=== PATIENT | female | born 1970 | race Caucasian/White ===

== ENCOUNTER 2017-04-20 07:24 | Outpatient (CLI) | payer MEDICARE, MEDICAID ==
[~2017-04-20] VITALS: Ht 167.6 cm; Wt 46.7 kg
[~2017-04-20 07:24] MED LIST: /ALEN70TA; /BACL20TA; /BACL20TA OR; ACET500C; ACET65TA OR; AMBI10TA PO; AMOX875T PO; ARIC10TA OR; ARIC10TA PO; AVON1KIT3 SC; BONI150T PO; CALC600T10; CALC600T3 PO; CHLOROQUINE PO; CIPR25SS OR; DEPO150I IM; DETR1TAB4 PO; DETR2CAP OR; DETR4CAP; DETR4CAP10 PO; FOLI1TAB2 PO; FOSA70TA PO; KEFL500C OR; MACR100C42 PO; MACR50CA OR; MAPAP PO; MAXA10TA14 PO; MAXA10TA17; MAXA10TA17 OR; MULTIVIT PO; MYSO50TA OR; MYSO50TA PO; MYSO50TA5 PO; NEUR100C OR; NEUR300C; NEUR600T PO; OXYB5TAB5 OR; PERC5TAB8 OR; PERCOCET PO; REBIF; SOLU500I IV; TOLT2TA; TRAZ300T2 PO; VITA400C2 PO; VITAMIN D50000 UNT PO; VOLT1GEL24 TD
[2017-04-20] MEDS ORDERED: methylPREDNISolone 1,000 MG, VIAL MATE ADAPTER 1 EACH in D5W 250 ML IV ONE (07:30)
== END 2017-04-20 09:00 | disposition home or self-care (01) ==
LOC: M INFU 07:24
PROVIDERS: ATTEND Internal Medicine Nephrology
DX: G35 Multiple sclerosis (principal); Z88.1 Allergy status to other antibiotic agents; Z79.899 Other long term (current) drug therapy
CPT/HCPCS: 96365; J2930

== ENCOUNTER 2017-04-21 06:17 | Outpatient (CLI) | payer MEDICARE, MEDICAID ==
[~2017-04-21] VITALS: Ht 167.6 cm; Wt 46.7 kg
[~2017-04-21 06:17] MED LIST changes: +methylPREDNISolone 1,000 MG, VIAL MATE ADAPTER 1 EACH in D5W 250 ML IV ONE
== END 2017-04-21 08:40 | disposition home or self-care (01) ==
LOC: M INFU 06:17
PROVIDERS: ATTEND Hospitalist
DX: G35 Multiple sclerosis (principal); Z88.1 Allergy status to other antibiotic agents; Z79.899 Other long term (current) drug therapy; Z79.2 Long term (current) use of antibiotics
CPT/HCPCS: 96365; J2930

== ENCOUNTER 2017-04-22 06:21 | Outpatient (CLI) | payer MEDICARE, MEDICAID ==
[~2017-04-22 06:21] MED LIST changes: -methylPREDNISolone 1,000 MG, VIAL MATE ADAPTER 1 EACH in D5W 250 ML IV ONE
[2017-04-22] MEDS ORDERED: methylPREDNISolone 1,000 MG, VIAL MATE ADAPTER 1 EACH in D5W 250 ML IV ONE (06:30)
== END 2017-04-22 07:50 | disposition home or self-care (01) ==
LOC: M INFU 06:21
PROVIDERS: ATTEND Hospitalist
DX: G35 Multiple sclerosis (principal); Z87.891 Personal history of nicotine dependence; Z88.8 Allergy status to other drugs, medicaments and biological substances; Z79.899 Other long term (current) drug therapy
CPT/HCPCS: 96365; J2930

== ENCOUNTER 2017-04-23 06:25 | Outpatient (CLI) | payer MEDICARE, MEDICAID ==
[2017-04-23] MEDS ORDERED: methylPREDNISolone 1,000 MG, VIAL MATE ADAPTER 1 EACH in D5W 250 ML IV ONE (06:45)
== END 2017-04-23 08:00 | disposition home or self-care (01) ==
LOC: M INFU 06:25
PROVIDERS: ATTEND Hospitalist
DX: G35 Multiple sclerosis (principal); Z87.891 Personal history of nicotine dependence; Z88.8 Allergy status to other drugs, medicaments and biological substances; Z79.899 Other long term (current) drug therapy
CPT/HCPCS: 96365; J2930

== ENCOUNTER 2017-04-24 06:23 | Outpatient (CLI) | payer MEDICARE, MEDICAID ==
[2017-04-24] MEDS ORDERED: methylPREDNISolone 1,000 MG, VIAL MATE ADAPTER 1 EACH in D5W 250 ML IV ONE (06:30)
== END 2017-04-24 08:00 | disposition home or self-care (01) ==
LOC: M INFU 06:23
PROVIDERS: ATTEND Hospitalist
DX: G35 Multiple sclerosis (principal); Z87.891 Personal history of nicotine dependence; Z88.8 Allergy status to other drugs, medicaments and biological substances; Z79.899 Other long term (current) drug therapy
CPT/HCPCS: 96365; J2930

== ENCOUNTER → 2017-07-14 | Outpatient (REF) | payer MEDICARE, MEDICAID ==
[~2017-07-14] MED LIST changes: -ARIC10TA PO; +ARIC1TAB2 PO; +DETR4CAP PO; -DETR4CAP10 PO; -FOLI1TAB2 PO; +FOLI1TAB4 PO; -VITA400C2 PO; +VITA400C7 PO; +VOLT1GEL15 TD; -VOLT1GEL24 TD
== END ==
LOC: M LAB REF 11:36
PROVIDERS: ATTEND Obstetrics & Gynecology
DX: N95.0 Postmenopausal bleeding (principal); Z79.899 Other long term (current) drug therapy

== ENCOUNTER → 2017-07-29 | Outpatient (CLI) | payer MEDICARE, MEDICAID ==
--- NOTE | 2017-07-29 11:44 | REP ---
PELVIC ULTRASOUND: Real-time sonographic evaluation of the pelvis performed utilizing transabdominal and endovaginal technique. The bladder measures 11.4 x 7.8 x 10.6 cm. Uterus measures 4.4 x 2.1 x 3.0 cm. Endometrial thickness is 5 mm. Right ovary measures 2.4 x 1.8 x 2.3 cm. Left ovary measures 1.9 x 1.0 x 1.3 cm. There is no adnexal mass. There is no free fluid. Blood flow is seen in each ovary with duplex Doppler evaluation, with no torsion. In the base of the bladder, there appears to be a small partial septation. IMPRESSION: Slight prominence of the endometrial thickness at 5 mm. Signed by Tyler Jacobson MD 07/29/2017 05:04 P
== END ==
LOC: M SMT 09:53
PROVIDERS: ATTEND Obstetrics & Gynecology
DX: N95.0 Postmenopausal bleeding (principal); N85.00 Endometrial hyperplasia, unspecified

== ENCOUNTER → 2018-04-06 | Outpatient (CLI) | payer MEDICARE, MEDICAID ==
[~2018-04-06] MED LIST changes: -/ALEN70TA; -/BACL20TA; -/BACL20TA OR; -ACET500C; -ACET65TA OR; -AMBI10TA PO; -AMOX875T PO; -ARIC10TA OR; -ARIC1TAB2 PO; -AVON1KIT3 SC; -BONI150T PO; -CALC600T10; -CALC600T3 PO; -CHLOROQUINE PO; -CIPR25SS OR; -DEPO150I IM; -DETR1TAB4 PO; -DETR2CAP OR; -DETR4CAP; -DETR4CAP PO; -FOLI1TAB4 PO; -FOSA70TA PO; -KEFL500C OR; -MACR100C42 PO; -MACR50CA OR; -MAPAP PO; -MAXA10TA14 PO; -MAXA10TA17; -MAXA10TA17 OR; -MULTIVIT PO; -MYSO50TA OR; -MYSO50TA PO; -MYSO50TA5 PO; -NEUR100C OR; -NEUR300C; -NEUR600T PO; -OXYB5TAB5 OR; -PERC5TAB8 OR; -PERCOCET PO; +PROHANCE 279.3MG/ML 5ML VIAL (A9576) As Ordered; -REBIF; -SOLU500I IV; -TOLT2TA; -TRAZ300T2 PO; -VITA400C7 PO; -VITAMIN D50000 UNT PO; -VOLT1GEL15 TD
== END ==
LOC: M RAD 08:45
DX: G35 Multiple sclerosis (principal)
CPT/HCPCS: A9576

== ENCOUNTER → 2019-10-20 | Outpatient (CLI) | payer MEDICARE, MEDICAID ==
[~2019-10-20] MED LIST changes: +/ALEN70TA; +ACET500C; +ACET65TA OR; +AMBI10TA PO; +AMOX875T PO; +ARIC10TA OR; +ARIC1TAB2 PO; +AVON1KIT3 SC; +BACL1TAB9; +BACL1TAB9 OR; +BONI1TAB PO; +CALC600T10; +CALC600T3 PO; +CHLOROQUINE PO; +CIPR25SS OR; +DEPO150I IM; +DETR1TAB5 PO; +DETR2CAP OR; +DETR4CAP; +DETR4CAP PO; +FOLI1TAB11 PO; +FOSA70TA PO; +KEFL500C OR; +MACR100C42 PO; +MACR50CA OR; +MAPAP PO; +MAXA10TA14 PO; +MAXA10TA17; +MAXA10TA17 OR; +MULTIVIT PO; +MYSO50TA OR; +MYSO50TA PO; +MYSO50TA5 PO; +NEUR100C OR; +NEUR300C; +NEUR600T PO; +OXYB5TAB5 OR; +PERC5TAB8 OR; +PERCOCET PO; -PROHANCE 279.3MG/ML 5ML VIAL (A9576) As Ordered; +REBIF; +SOLU500I IV; +TOLT2TA; +TRAZ300T2 PO; +VITA400C7 PO; +VITAMIN D50000 UNT PO; +VOLT1GEL15 TD
[2019-10-20 14:16] LABS: HEMATOCRIT 43.1 % (36.0-47.0); HEMOGLOBIN 13.9 g/dl (12.0-15.5); MEAN CORPUSCULAR HGB CONC 32.3 g/dl (32.0-36.5); MEAN CORPUSCULAR VOLUME 92.9 fl (80.0-96.0); PLATELET COUNT, AUTOMATED 256 10^3/uL (150-450); RED BLOOD COUNT 4.64 10^6/uL (4.00-5.40); WHITE BLOOD COUNT 8.6 10^3/uL (4.0-10.0)
== END ==
LOC: M LAB 13:52
PROVIDERS: ATTEND Physician Assistant Medical
DX: R19.5 Other fecal abnormalities (principal)

== ENCOUNTER 2019-12-06 06:43 | Day surgery (SDC) | payer MEDICARE, MEDICAID ==
[~2019-12-06] VITALS: Ht 167.6 cm; Wt 57.6 kg
[~2019-12-06 06:43] MED LIST changes: +BACL1TAB9 PO; -DEPO150I IM; +DEPO150I PO; +INTE22SYR INJ; +META0.52 PO; +MULTCAP PO; +NEUR300C PO; +NS 1,000 ML IV ONE; +OXYB5TAB10 PO; +TRAZ1TAB12 PO
[2019-12-06] MEDS ORDERED: propofoL 200 MG/20 ML VIAL As Ordered ONE ×2 (09:27→09:44)
[2019-12-06] MEDS ORDERED: LIDOCAINE 2% INJ 100 MG/5 ML SDV (FOR ANES.) As Ordered ONE (09:27)
--- NOTE | 2019-12-06 10:01 | ROOR ---
Patient Name: Tania Deng Procedure Date: 12/06/2019 9:18 AM Date of : 1970 Age: 49 Room: [facility] Gender: Female Note Status: Finalized Procedure: Colonoscopy Indications: Positive Cologuard test Providers: Adebayo PEDERSON MD Referring MD: DOT MADDOX DO Requesting Provider: Medicines: Monitored Anesthesia Care Complications: No immediate complications. Procedure: Pre-Anesthesia Assessment: - The heart rate, respiratory rate, oxygen saturations, blood pressure, adequacy of pulmonary ventilation, and response to care were monitored throughout the procedure. The Colonoscope was introduced through the anus and advanced to 10 cm into the ileum. The colonoscopy was performed without difficulty. The patient tolerated the procedure well. The quality of the bowel preparation was good. Findings: Skin tags were found on perianal exam. Four sessile and semi-pedunculated polyps were found in the sigmoid colon. The polyps were 5 to 10 mm in size. These polyps were removed with a cold snare. Resection and retrieval were complete. To prevent bleeding after the polypectomy, one hemostatic clip was successfully placed. There was no bleeding at the end of the procedure. A single (solitary) ten mm ulcer was found in the distal rectum. Biopsies were taken with a cold forceps for histology. The colon (entire examined portion) was moderately redundant. Advancing the scope required straightening and shortening the scope to obtain bowel loop reduction. The exam was otherwise normal throughout the examined colon. The terminal ileum appeared normal. Impression: - Perianal skin tags found on perianal exam. - Four 5 to 10 mm polyps in the sigmoid colon, removed with a cold snare. Resected and retrieved. Clip was placed. - A single (solitary) ulcer in the distal rectum. Biopsied. - Redundant colon. - The examined portion of the ileum was normal. Recommendation: - Rectal ulcer may be related to prolapse or fecal impaction.--recommend a good laxative regimen - Start Miralax 1 capful (17 grams) in 8 ounces of water daily. --May increase to twice a day dosing. - Repeat colonoscopy in 3 years for surveillance. Adebayo Pederson MD Adebayo PEDERSON MD 12/06/2019 10:00:29 AM Electronically signed by Adebayo PEDERSON MD Number of Addenda: 0 Note Initiated On: 12/06/2019 9:18 AM Estimated Blood Loss: Estimated blood loss: none.
[2019-12-06 10:20] VITALS: BP 161/73
== END 2019-12-06 10:36 | disposition home or self-care (01) ==
LOC: M OPP 06:43
PROVIDERS: ATTEND Internal Medicine Gastroenterology
DX: D12.5 Benign neoplasm of sigmoid colon (principal); K62.6 Ulcer of anus and rectum; K64.4 Residual hemorrhoidal skin tags; Q43.8 Other specified congenital malformations of intestine; R19.5 Other fecal abnormalities; G35 Multiple sclerosis; Z79.899 Other long term (current) drug therapy; Z88.8 Allergy status to other drugs, medicaments and biological substances; Z87.891 Personal history of nicotine dependence

== ENCOUNTER → 2021-04-03 | Outpatient (CLI) | payer MEDICARE, MEDICAID ==
[~2021-04-03] MED LIST changes: -CALC600T3 PO; +CALC600T86 PO; -NS 1,000 ML IV ONE; +PROHANCE 279.3MG/ML 15ML VIAL As Ordered ONE
--- NOTE | 2021-04-03 15:25 | REPVR ---
PROCEDURE INFORMATION: Exam: MR Head Without and With Contrast Exam date and time: 04/03/2021 2:53 PM Age: 50 years old Clinical indication: Condition or disease; Multiple sclerosis; Additional info: Ms TECHNIQUE: Imaging protocol: MR of the head without and with intravenous contrast. Contrast material: PROHANCE; Contrast volume: 9 ml; Contrast route: INTRAVENOUS (IV); COMPARISON: MRI-Brain W/O FOLL BY WITH 04/06/2018 10:10 AM FINDINGS: Brain: There is extensive high signal abnormality in the periventricular white matter and centrum semiovale, best seen on the flair images. Although nonspecific, these changes are compatible with long-standing MS. The appearance is similar to prior study. There is severe a cerebral atrophy. Cerebral ventricles: Normal. No ventriculomegaly. Bones/joints: Unremarkable. Paranasal sinuses: Normal as visualized. No acute sinusitis. Mastoid air cells: Normal as visualized. No mastoid effusion. Orbital cavity: Unremarkable. Soft tissues: Unremarkable. IMPRESSION: 1. There is extensive high signal abnormality in the periventricular white matter and centrum semiovale, best seen on the flair images. Although nonspecific, these changes are compatible with long-standing MS. The appearance is similar to prior study. 2. There is severe a cerebral atrophy. Electronically signed by: Pablo Valdez On 04/03/2021 15:25:35 PM
--- NOTE | 2021-04-03 15:29 | REPVR ---
PROCEDURE INFORMATION: Exam: MR Cervical Spine Without and With Contrast Exam date and time: 04/03/2021 2:53 PM Age: 50 years old Clinical indication: Condition or disease; Other: Ms TECHNIQUE: Imaging protocol: Multiplanar magnetic resonance images of the cervical spine without and with contrast. Contrast material: PROHANCE; Contrast volume: 9 ml; Contrast route: INTRAVENOUS (IV); COMPARISON: MRI-C SPINE W/O FOLL BY WITH 04/06/2018 10:34 AM FINDINGS: Vertebrae: Unremarkable. Spinal cord: There is a focal mildly enhancing lesion within the cervical cord at the C7 level. This has been reported previously. The lesion was enhancing in 2018. The current appearance is similar to prior study. C2-C3: No significant disc disease. No significant spinal stenosis. C3-C4: No significant disc disease. No significant spinal stenosis. C4-C5: No significant disc disease. No significant spinal stenosis. C5-C6: No significant disc disease. No significant spinal stenosis. C6-C7: No significant disc disease. No significant spinal stenosis. C7-T1: No significant disc disease. No significant spinal stenosis. Soft tissues: Unremarkable. IMPRESSION: There is a focal mildly enhancing lesion within the cervical cord at the C7 level. There is mild cord expansion. This has been reported previously. The lesion was enhancing in 2018. The current appearance is similar to prior study. Electronically signed by: Pablo Valdez On 04/03/2021 15:29:42 PM
== END ==
LOC: M RAD 12:51
PROVIDERS: ATTEND Psychiatry & Neurology Neurology
DX: G35 Multiple sclerosis (principal)
CPT/HCPCS: 70553; 72156; A9576

== ENCOUNTER → 2021-04-25 | Outpatient (CLI) | payer MEDICARE, OTHER ==
[~2021-04-25] MED LIST changes: +GASTROGRAFIN SOLUTION 30ML (Q9963) As Ordered ONE; +ISOVUE-370 76% 100ML VIAL As Ordered ONE; -PROHANCE 279.3MG/ML 15ML VIAL As Ordered ONE
--- NOTE | 2021-04-25 12:17 | REP ---
INDICATION: MS, EVAL CA COMPARISON: None. TECHNIQUE: Standard helical technique after the intravenous administration of 100 cc Isovue 370 FINDINGS: The mediastinum and pulmonary alex are within normal limits. There are no pleural or pericardial effusions. The imaged osseous structures are within normal limits. Evaluation of the lung welch shows no abnormal nodules, masses, or opacities. IMPRESSION: CT findings are within normal limits. <Electronically signed by Donnell Llanes > 04/25/21 [id number]
--- NOTE | 2021-04-25 12:21 | REP ---
INDICATION: MS, EVAL CA COMPARISON: 05/25/2012. TECHNIQUE: CT Scan of the abdomen was performed with intravenous administration of 100 cc of Isovue 370, with oral contrast. FINDINGS: Lung bases: Unremarkable. Liver: Normal Gallbladder: Unremarkable. Spleen: Normal. Adrenals: Normal. Pancreas: Normal. Kidneys: There is no hydronephrosis bilaterally. There are multiple left renal cysts identified. The largest is in the mid aspect laterally measuring 2.1 cm in maximum diameter. Small and large bowel: Unremarkable. Free fluid: None. Abdominal aorta: No aneurysm or dissection. Adenopathy: None. Osseous structures: Unremarkable. IMPRESSION: Multiple left renal cysts. Otherwise unremarkable CT abdomen. <Electronically signed by Tyler Jacobson > 04/25/21 [id number]
== END ==
LOC: M RAD 09:42
PROVIDERS: ATTEND Psychiatry & Neurology Neurology
DX: G35 Multiple sclerosis (principal); R93.89 Abnormal findings on diagnostic imaging of other specified body structures
CPT/HCPCS: 71260; 74160; Q9963; Q9967

== ENCOUNTER → 2022-01-13 | Outpatient (REF) | payer MEDICARE, OTHER ==
[~2022-01-13] MED LIST changes: -GASTROGRAFIN SOLUTION 30ML (Q9963) As Ordered ONE; -ISOVUE-370 76% 100ML VIAL As Ordered ONE
== END ==
LOC: M LAB REF 09:16
PROVIDERS: ATTEND Physician Assistant
DX: R19.7 Diarrhea, unspecified (principal)

== ENCOUNTER → 2023-08-18 | Outpatient (CLI) | payer MEDICARE, MEDICAID ==
[~2023-08-18] MED LIST changes: +ALEN70TA87 PO; -FOSA70TA PO; -MAXA10TA14 PO; -OXYB5TAB10 PO; +OXYB5TAB11 PO; +RIZA10TA64 PO
== END ==
LOC: M WHC 07:29
PROVIDERS: ATTEND Family Medicine
DX: Z12.31 Encounter for screening mammogram for malignant neoplasm of breast (principal)

== ENCOUNTER 2024-03-10 09:29 | Day surgery (SDC) | payer MEDICARE, MEDICAID ==
[~2024-03-10] VITALS: Ht 167.6 cm; Wt 48.3 kg
[~2024-03-10 09:29] MED LIST changes: +MULTTAB86 PO; -OXYB5TAB11 PO; +OXYB5TAB14 PO
[2024-03-10] MEDS: NS 1,000 ML IV ONE (10:56)
[2024-03-10] MEDS ORDERED: propofoL 500 MG/50 ML VIAL As Ordered ONE (11:42)
[2024-03-10] MEDS ORDERED: LIDOCAINE 2% 100MG/5ML SDV (FOR ANES.) As Ordered ONE (11:42)
[2024-03-10 12:26] VITALS: TEMP 97.4
[2024-03-10 12:35] VITALS: BP 133/60; O2SAT 99
== END 2024-03-10 12:49 | disposition home or self-care (01) ==
LOC: M OPP 09:29
PROVIDERS: ATTEND Internal Medicine Gastroenterology
DX: Z12.11 Encounter for screening for malignant neoplasm of colon (principal); K63.5 Polyp of colon; Q43.8 Other specified congenital malformations of intestine; K62.6 Ulcer of anus and rectum; Z86.010 Personal history of colon polyps; G35 Multiple sclerosis; Z79.899 Other long term (current) drug therapy; Z85.42 Personal history of malignant neoplasm of other parts of uterus; Z92.21 Personal history of antineoplastic chemotherapy; F17.210 Nicotine dependence, cigarettes, uncomplicated; Z88.8 Allergy status to other drugs, medicaments and biological substances

== ENCOUNTER → 2024-03-31 | Outpatient (REF) | payer MEDICARE, MEDICAID ==
[2024-04-05 15:09] LABS: HPV APTIMA Negative (Negative)
== END ==
LOC: M SFHCWAGY 10:24
PROVIDERS: ATTEND Nurse Practitioner Family
DX: Z12.4 Encounter for screening for malignant neoplasm of cervix (principal)
CPT/HCPCS: 87624; G0123

== ENCOUNTER → 2025-05-25 | Outpatient (REF) | payer MEDICARE, MEDICAID ==
[~2025-05-25] MED LIST changes: -AMBI10TA PO; +ZOLP-533 PO
== END ==
LOC: M LAB REF 09:47
PROVIDERS: ATTEND Family Medicine
DX: R63.4 Abnormal weight loss (principal); R19.7 Diarrhea, unspecified

== ENCOUNTER 2025-06-05 08:09 | Inpatient (IN) | payer MEDICAID, MEDICARE ==
[~2025-06-05] VITALS: Ht 167.6 cm; Wt 42.7 kg
[2025-06-05 10:25] LABS: BASO # 0.1 10^3/uL (0.0-0.2); BASO % 0.3 % (0.0-1.0); EOS # 0.0 10^3/uL (0.0-0.5); EOS % 0.0 % (0.0-3.0); LYMPH # 1.2 10^3/uL (1.5-5.0); LYMPH % 5.0 % (24.0-44.0); MONO # 1.8 10^3/uL (0.0-0.8); MONO % 7.4 % (2.0-8.0); NEUTROPHILS # 21.3 10^3/uL (1.5-8.5); NEUTROPHILS % 86.6 % (36.0-66.0); PLATELET COUNT, AUTOMATED 481 10^3/uL (150-450)
[2025-06-05] MEDS: NS (Normal Saline) 0.9% 1,000 ML IV ONE (10:26)
[2025-06-05 10:56] LABS: ALT/SGPT 19.0 U/L (7.0-40); AST/SGOT 21.0 U/L (<34)
[2025-06-05 11:09] LABS: OSMOLALITY SERUM 341.0 MOSM/KG (275-295)
[2025-06-05 11:11] LABS: MAGNESIUM LEVEL 2.6 MG/DL (1.8-2.4)
[2025-06-05 11:21] LABS: CPK CREATINE PHOSPHOKINASE 71.0 U/L (34-145)
[2025-06-05 11:41] LABS: KETONE, URINE AUTO RFX TRACE mg/dL (NEGATIVE); NITRITE, URINE AUTO RFX NEGATIVE (NEGATIVE); RBC, URINE AUTO RFX TNTC /HPF (0-3); SQUAM EPITHELIAL CELL UR AURFX 3 /HPF (0-6)
[2025-06-05 11:44] LABS: LEUKOCYTE ESTERASE UR AUTO RFX 2+ (NEGATIVE); WBC, URINE AUTO RFX TNTC /HPF (0-3)
[2025-06-05 12:02] LABS: POTASSIUM RANDOM URINE 32.0 MMOL/L; SODIUM,RANDOM URINE 115.0 MMOL/L
[2025-06-05] MEDS: cefTRIAXone SOD 2 GM in DEXTROSE 5% (D5W) ADV/MINI-BAG 50 ML IV ONE (12:13)
[2025-06-05] MEDS: LIDOCAINE 2% 5 ML JELLY UROJET TOP ONE (12:35)
[2025-06-05] MEDS ORDERED: CHOL4PKT PO (12:43)
[2025-06-05] MEDS ORDERED: OXYB10TA23 PO (12:43)
[2025-06-05] MEDS ORDERED: IBAN150T10 PO (12:43)
[2025-06-05] MEDS ORDERED: HOME MED LIST COMPLETE! XX SCH (12:45)
[2025-06-05 14:07] LABS: TOTAL PROTEIN,RANDOM URINE 713.8 MG/DL (0.0-14.0)
[2025-06-05 14:57] LABS: CALCIUM LEVEL 10.6 MG/DL (8.5-10.1); CARBON DIOXIDE LEVEL 20.0 MMOL/L (20-31); CHLORIDE LEVEL 108.0 MMOL/L (98-107); CREATININE FOR GFR 2.47 MG/DL (0.55-1.30); GLOMERULAR FILTRATION RATE 22.3 (>51); POTASSIUM SERUM 4.7 MMOL/L (3.5-5.1); SODIUM LEVEL 146.0 MMOL/L (136-145)
[2025-06-05] MEDS: NS (Normal Saline) 0.9% 1,000 ML IV SCH (16:00)
[2025-06-05 17:20] VITALS: BP 154/76; TEMP 97.2; O2SAT 100
[2025-06-05 20:00] VITALS: BP 148/78; TEMP 97.7; O2SAT 98
[2025-06-05] MEDS: traZODone 100 MG TAB PO SCH (20:36)
[2025-06-05] MEDS: HEPARIN SOD 5000 UNITS/ML 1 ML VIAL/SYRINGE SQ SCH (20:36)
[2025-06-06 04:00] VITALS: BP 140/78; TEMP 97.9; O2SAT 96
[2025-06-06 06:56] LABS: BASO # 0.1 10^3/uL (0.0-0.2); BASO % 0.3 % (0.0-1.0); EOS # 0.1 10^3/uL (0.0-0.5); EOS % 0.6 % (0.0-3.0); LYMPH # 1.7 10^3/uL (1.5-5.0); LYMPH % 9.3 % (24.0-44.0); MONO # 1.1 10^3/uL (0.0-0.8); MONO % 6.2 % (2.0-8.0); NEUTROPHILS # 14.9 10^3/uL (1.5-8.5); NEUTROPHILS % 83.1 % (36.0-66.0)
[2025-06-06 06:59] LABS: PLATELET COUNT, AUTOMATED 350 10^3/uL (150-450)
[2025-06-06 07:36] LABS: CALCIUM LEVEL 8.6 MG/DL (8.5-10.1); CARBON DIOXIDE LEVEL 22.0 MMOL/L (20-31); CHLORIDE LEVEL 115.0 MMOL/L (98-107); CREATININE FOR GFR 1.32 MG/DL (0.55-1.30); GLOMERULAR FILTRATION RATE 47.4 (>51); MAGNESIUM LEVEL 2.1 MG/DL (1.8-2.4); PHOSPHORUS LEVEL 2.6 MG/DL (2.5-4.9); POTASSIUM SERUM 4.1 MMOL/L (3.5-5.1); SODIUM LEVEL 145.0 MMOL/L (136-145)
[2025-06-06] MEDS: DONEPEZIL 5 MG TAB PO SCH (09:50)
[2025-06-06] MEDS: BACLOFEN 10 MG TAB PO SCH (09:50)
[2025-06-06] MEDS: FOLIC ACID 1 MG TAB PO SCH (09:50)
[2025-06-06] MEDS: cefTRIAXone SOD 2 GM in DEXTROSE 5% (D5W) ADV/MINI-BAG 50 ML IV SCH (11:24)
[2025-06-06] MEDS: NS 0.45% 1,000 ML IV SCH (11:25)
[2025-06-06 11:40] LABS: KETONE, URINE AUTO RFX NEGATIVE (NEGATIVE); NITRITE, URINE AUTO RFX NEGATIVE (NEGATIVE); RBC, URINE AUTO RFX 173 /HPF (0-3); SQUAM EPITHELIAL CELL UR AURFX 1 /HPF (0-6)
[2025-06-06 11:43] LABS: LEUKOCYTE ESTERASE UR AUTO RFX 3+ (NEGATIVE); WBC, URINE AUTO RFX TNTC /HPF (0-3)
[2025-06-06 11:56] VITALS: BP 142/78; TEMP 97.7; O2SAT 98
[2025-06-06 20:16] VITALS: BP 144/78; TEMP 97.5; O2SAT 98
[2025-06-06 21:36] LABS: CALCIUM LEVEL 7.9 MG/DL (8.5-10.1); CARBON DIOXIDE LEVEL 25.0 MMOL/L (20-31); CHLORIDE LEVEL 109.0 MMOL/L (98-107); CREATININE FOR GFR 1.09 MG/DL (0.55-1.30); GLOMERULAR FILTRATION RATE 59.6 (>51); POTASSIUM SERUM 3.8 MMOL/L (3.5-5.1); SODIUM LEVEL 144.0 MMOL/L (136-145)
[2025-06-07 04:23] VITALS: BP 145/78; TEMP 97.9; O2SAT 97
[2025-06-07 06:17] LABS: BASO # 0.0 10^3/uL (0.0-0.2); BASO % 0.3 % (0.0-1.0); EOS # 0.3 10^3/uL (0.0-0.5); EOS % 1.8 % (0.0-3.0); LYMPH # 2.5 10^3/uL (1.5-5.0); LYMPH % 18.3 % (24.0-44.0); MONO # 1.3 10^3/uL (0.0-0.8); MONO % 9.1 % (2.0-8.0); NEUTROPHILS # 9.7 10^3/uL (1.5-8.5); NEUTROPHILS % 70.1 % (36.0-66.0); PLATELET COUNT, AUTOMATED 329 10^3/uL (150-450)
[2025-06-07 06:40] LABS: CALCIUM LEVEL 8.1 MG/DL (8.5-10.1); CARBON DIOXIDE LEVEL 24.0 MMOL/L (20-31); CHLORIDE LEVEL 111.0 MMOL/L (98-107); CREATININE FOR GFR 0.89 MG/DL (0.55-1.30); GLOMERULAR FILTRATION RATE 76.0 (>51); POTASSIUM SERUM 3.9 MMOL/L (3.5-5.1); SODIUM LEVEL 143.0 MMOL/L (136-145)
[2025-06-07 11:17] VITALS: BP 139/73; TEMP 98.2; O2SAT 98
[2025-06-07] MEDS ORDERED: PROHANCE 279.3MG/ML 5ML VIAL As Ordered ONE (14:14)
[2025-06-07] MEDS: LIDOCAINE 2% 5 ML JELLY UROJET TOP PRN (16:33)
[2025-06-07 17:49] VITALS: BP 160/75; TEMP 97.9; O2SAT 95
[2025-06-07 20:30] VITALS: BP 142/77; TEMP 97.3; O2SAT 99
[2025-06-08 03:53] VITALS: BP 107/61; TEMP 97.5; O2SAT 97
[2025-06-08 07:25] LABS: BASO # 0.0 10^3/uL (0.0-0.2); BASO % 0.3 % (0.0-1.0); EOS # 0.3 10^3/uL (0.0-0.5); EOS % 2.7 % (0.0-3.0); LYMPH # 2.5 10^3/uL (1.5-5.0); LYMPH % 19.5 % (24.0-44.0); MONO # 1.5 10^3/uL (0.0-0.8); MONO % 11.5 % (2.0-8.0); NEUTROPHILS # 8.4 10^3/uL (1.5-8.5); NEUTROPHILS % 65.5 % (36.0-66.0); PLATELET COUNT, AUTOMATED 324 10^3/uL (150-450)
[2025-06-08 07:57] LABS: CALCIUM LEVEL 8.0 MG/DL (8.5-10.1); CARBON DIOXIDE LEVEL 28.0 MMOL/L (20-31); CHLORIDE LEVEL 108.0 MMOL/L (98-107); CREATININE FOR GFR 0.99 MG/DL (0.55-1.30); GLOMERULAR FILTRATION RATE 66.9 (>51); POTASSIUM SERUM 4.3 MMOL/L (3.5-5.1); SODIUM LEVEL 146.0 MMOL/L (136-145)
[2025-06-08 12:00] VITALS: BP 121/68; TEMP 98.1; O2SAT 96
[2025-06-08 19:55] VITALS: BP 131/69; TEMP 97.9; O2SAT 96
[2025-06-08 20:00] VITALS: O2SAT 95
[2025-06-09 03:57] VITALS: BP 127/58; TEMP 97.5; O2SAT 96
[2025-06-09 05:38] LABS: PLATELET COUNT, AUTOMATED 320 10^3/uL (150-450)
[2025-06-09 05:57] LABS: CALCIUM LEVEL 8.6 MG/DL (8.5-10.1); CARBON DIOXIDE LEVEL 28.0 MMOL/L (20-31); CHLORIDE LEVEL 107.0 MMOL/L (98-107); CREATININE FOR GFR 0.83 MG/DL (0.55-1.30); GLOMERULAR FILTRATION RATE 82.7 (>51); POTASSIUM SERUM 4.3 MMOL/L (3.5-5.1); SODIUM LEVEL 143.0 MMOL/L (136-145)
[2025-06-09 06:23] LABS: ATYPICAL LYMPH 4 % (0-5); BASOPHILS 1 % (0-1); EOSINOPHILS 4 % (0-3); LYMPHOCYTES 31 % (16-44); MONOCYTES 10 % (0-5); NEUTROPHILS 50 % (28-66); PLATELET ESTIMATE NORMAL (NORMAL)
[2025-06-09] MEDS ORDERED: BACI1CAP PO (10:52)
[2025-06-09] MEDS ORDERED: CEFP200T PO (10:52)
[2025-06-09 11:38] VITALS: BP 145/68; TEMP 97.9; O2SAT 98
== END 2025-06-09 16:09 | disposition home health service (06) | DRG 689 ==
LOC: M ED 08:09 → M ED INP 14:13 → M MSPAV 17:14
PROVIDERS: ADMIT Internal Medicine Nephrology; ATTEND General Practice
DX: N13.6 Pyonephrosis (principal); E43 Unspecified severe protein-calorie malnutrition; E87.0 Hyperosmolality and hypernatremia; Z68.1 Body mass index [BMI] 19.9 or less, adult; Q43.8 Other specified congenital malformations of intestine; N17.9 Acute kidney failure, unspecified; G35 Multiple sclerosis; R26.89 Other abnormalities of gait and mobility; K80.20 Calculus of gallbladder without cholecystitis without obstruction; G25.0 Essential tremor; N31.9 Neuromuscular dysfunction of bladder, unspecified; R19.7 Diarrhea, unspecified; R33.9 Retention of urine, unspecified; R63.4 Abnormal weight loss; Z66 Do not resuscitate; Z86.0101 Personal history of adenomatous and serrated colon polyps; Z99.3 Dependence on wheelchair; Z96.641 Presence of right artificial hip joint

== ENCOUNTER 2025-07-20 08:33 | Emergency (ER) | payer MEDICARE ==
[~2025-07-20] VITALS: Ht 167.6 cm; Wt 47.6 kg
[~2025-07-20 08:33] MED LIST changes: +BACI1CAP PO; +CEFP200T PO; +CHOL4PKT PO; +IBAN150T10 PO; +OXYB10TA23 PO
[2025-07-20] MEDS: LIDOCAINE 2% 5 ML JELLY UROJET TOP ONE (09:50)
[2025-07-20 09:52] VITALS: BP 134/63; TEMP 97.2; O2SAT 99
== END 2025-07-20 10:36 | disposition home or self-care (01) ==
LOC: M ED 09:09
DX: T83.021A Displacement of indwelling urethral catheter, initial encounter (principal); F17.210 Nicotine dependence, cigarettes, uncomplicated; Z88.8 Allergy status to other drugs, medicaments and biological substances; Z79.2 Long term (current) use of antibiotics; Z79.899 Other long term (current) drug therapy; Z79.810 Long term (current) use of selective estrogen receptor modulators (SERMs)

== ENCOUNTER → 2025-08-22 | Outpatient (CLI) | payer MEDICARE, MEDICAID | LOC: M RAD 09:19 | PROVIDERS: ATTEND Urology | DX: N13.30 Unspecified hydronephrosis (principal); R94.39 Abnormal result of other cardiovascular function study; N28.1 Cyst of kidney, acquired ==

== ENCOUNTER → 2025-09-27 | Outpatient (REF) | payer MEDICARE, MEDICAID ==
[2025-09-27 17:51] LABS: AMORPHOUS SEDIMENT MODERATE (NEGATIVE); APPEARANCE, URINE TURBID (CLEAR); BACTERIA, URINE AUTO 3+ (NEGATIVE); BILIRUBIN, URINE AUTO NEGATIVE (NEGATIVE); BLOOD, URINE BLOOD 1+ (NEGATIVE); GLUCOSE, URINE (UA) AUTO NEGATIVE (NEGATIVE); KETONE, URINE AUTO NEGATIVE (NEGATIVE); LEUKOCYTE ESTERASE, URINE AUTO 2+ (NEGATIVE); MUCUS, URINE SMALL (NEGATIVE); NITRITE, URINE AUTO POSITIVE (NEGATIVE); PROTEIN, URINE AUTO 3+ mg/dL (NEGATIVE); RBC, URINE AUTO 150 /HPF (0-3); SPECIFIC GRAVITY URINE AUTO 1.013 (1.002-1.035); SQUAMOUS EPITHELIAL CELL UR AU 21 /HPF (0-6); TRANSITIONAL EPITHELIAL AUTO 4 /HPF; TRIPLE PHOSPHATE CRYSTALS SMALL; UROBILINOGEN, URINE AUTO 0.2 mg/dL (0.0-2.0); WBC, URINE AUTO 138 /HPF (0-3)
== END ==
LOC: M SMT 16:55
PROVIDERS: ATTEND Urology
DX: R33.9 Retention of urine, unspecified (principal)